=== PATIENT | male | born 1970 | race Caucasian/White ===

== ENCOUNTER 2022-07-03 21:02 | Emergency (ER) | payer MEDICARE, SELFPAY ==
[2022-07-03 21:03] VITALS: BP 139/95; PULSE 118; RESP 17; TEMP 37; O2SAT 93; BMI 35.9
[2022-07-03 21:11] VITALS: O2SAT 89
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
[2022-07-03] MEDS: Morphine 4 MG/ML Syringe IV ×2 (21:15→23:54)
[2022-07-03] MEDS: Ondansetron 4 MG/2 ML Vial IV (21:15)
[2022-07-03 21:19] LABS: Absolute Lymphocyte Count 3.43 X10^3/uL (0.83-4.51); Absolute Neutrophil Count 2.2 X10^3/uL (2.0-7.7); Basophil# 0.06 X10^3/uL; Basophil% 0.9 % (0-1); Eosinophil# 0.08 X10^3/uL; Eosinophils% 1.2 % (0-5); Hematocrit 44.9 % (40-54); Hemoglobin 14.9 g/dL (13.0-16.5); Lymphocyte # 3.43 X10^3/ul (0.83-4.51); Lymphocyte % 53.2 % (19-41); Mean Corp Hgb Conc 33.2 g/dL (32-36); Mean Corpuscular Hgb 28.5 pg (27.0-32.0); Mean Corpuscular Volume 85.9 fL (80-94); Mean Platelet Vol. 9.2 fl (6.2-12.0); Monocyte# 0.62 X10^3/uL; Monocyte% 9.6 % (0-10); NRBC Flagged by Analyzer 0 % (0-5); Neutrophil # 2.22 X10^3/uL (2.7-7.7); Neutrophil % 34.5 % (47-70); Platelet Count 239 K/mm3 (150-450); RBC Distribution Width SD 40.4 fl (35.1-43.9); Red Blood Count 5.23 M/mm3 (4.6-6.2); White Blood Count 6.5 K/mm3 (4.4-11.0)
[2022-07-03] MEDS: Clindamycin 600 MG/50 ML BAG 100 MG IV (21:19)
[2022-07-03] MEDS: Diphth,Pertuss(Acell),Tet Vac 0.5 ML Vial IM (21:22)
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
[2022-07-03 21:31] LABS: Anion Gap 6 (5-15); BUN 7 mg/dL (7-18); BUN/Creat Ratio 4.3 RATIO (10-20); Calcium,Total 9.4 mg/dL (8.5-10.1); Chloride 102 mmol/L (98-107); Creatinine, Serum 1.61 mg/dL (0.70-1.30); EST Glomerular Filtration Rate 48 mL/min (>60); Est Glom Filt Rate - Afr Amer 58 mL/min (>60); Estimated Creatinine Clearance 58.24 ml/min; Glucose 197 mg/dL (74-106); Potassium 3.5 mmol/L (3.5-5.1); Sodium Level 138 mmol/L (136-145)
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
[2022-07-03 23:02] VITALS: BP 139/107; PULSE 123; RESP 16; O2SAT 94
[2022-07-03 23:58] VITALS: BP 146/97; PULSE 120; RESP 16; O2SAT 96
== END 2022-07-04 00:32 | disposition short-term general hospital (02) ==
PROVIDERS: Emergency Provider Emergency Medicine; Visit Provider Emergency Medicine
DX: S61.431A Puncture wound without foreign body of right hand, initial encounter (principal); Y99.0 Civilian activity done for income or pay; N28.9 Disorder of kidney and ureter, unspecified; R73.9 Hyperglycemia, unspecified; W34.09XA Accidental discharge from other specified firearms, initial encounter
CPT/HCPCS: 73130; 80048; 85025; 90715; 96365; 96366; 96372; 96375; 96376; 99285; A4216; J2405